=== PATIENT | female | born 1955 | race Caucasian/White ===

== ENCOUNTER 2017-11-05 10:45 | Emergency (ER) | payer BC ==
--- NOTE | 2017-11-05 11:21 | EDM.PDOC ---
ED HPI GENERAL MEDICAL PROBLEM - General Chief Complaint: Cardiovascular Problem Stated Complaint: MEDICATION ISSUES/HEART FLUTTERING Time Seen by Provider: 11/05/17 11:18 Source of Information: Reports: Patient History Limitations: Reports: No Limitations - History of Present Illness INITIAL COMMENTS - FREE TEXT/NARRATIVE: pt has a history of atrial fib which has been well controlled with flexainide and metorprol. She was placed on a course of predisone in a tapered dose, She has been having episodes of rapid rhythm and at that time she get some mild chest pain. That is the only time that she gets the discomfort. She has felt flushed with the predisone. Onset: Gradual Duration: Day(s):, Other ( She has been on the predisone for 4-5 days. ) Location: Reports: Chest Associated Symptoms: Reports: Chest Pain, Other (pt is having episodes of rapid rhythm. ) - Related Data Allergies Allergy/AdvReac Type Severity Reaction Status Date / Time naproxen Allergy Edema Verified 04/01/14 16:50 Home Meds: Home Meds Ibuprofen 800 mg PO QID 04/20/13 [History] Calcium Citrate/Vitamin D3 [Calcium Cit-Vit D 250-200 Cplt] 1 each PO DAILY [History] Fluticasone Propionate [Flonase] 16 gm NS DAILY 03/30/14 [History] Lisinopril/Hydrochlorothiazide [Zestoretic 20-12.5 mg Tablet] 1 tab PO DAILY [History] Metoprolol Tartrate [Lopressor] 12.5 mg PO BID 03/30/14 [History] Flecainide [Tambocor] 50 mg PO Q12H 11/05/17 [History] Polyethylene Glycol 3350 [MiraLAX] 17 gm PO ASDIRECTED 11/05/17 [History] Warfarin [Coumadin] 2 mg PO ASDIRECTED 11/05/17 [History] Warfarin [Coumadin] 5 mg PO ASDIRECTED 11/05/17 [History] rOPINIRole [Requip] 0.25 mg PO BEDTIME 11/05/17 [History] Social & Family History - Tobacco Use Years of Tobacco use: 25 Second Hand Smoke Exposure: No - Alcohol Use Days Per Week of Alcohol Use: 0 - Recreational Drug Use Recreational Drug Use: No ED ROS GENERAL - Review of Systems Review Of Systems: See Below Constitutional: Reports: No Symptoms HEENT: Reports: No Symptoms Respiratory: Reports: Shortness of Breath Cardiovascular: Reports: Palpitations, Other (pt is having episoded of rapid rhythm and when here heart is rapid she has chest pain. ) Endocrine: Reports: No Symptoms GI/Abdominal: Reports: No Symptoms : Reports: No Symptoms Musculoskeletal: Reports: Hand Pain Skin: Reports: No Symptoms ED EXAM, GENERAL - Physical Exam Exam: See Below Free Text/Narrative:: Pt arrived with a history of frequent episodes of rapid rhythm. She has some chest discomfort when this happens. Exam Limited By: No Limitations General Appearance: Alert, No Apparent Distress, Other (pt is feeling ok at this point. ) Ears: Normal TMs Nose: Normal Inspection Throat/Mouth: Normal Inspection Head: Atraumatic Neck: Normal Inspection Respiratory/Chest: No Respiratory Distress Cardiovascular: Regular Rate, Rhythm, Other (pt is having frequent episodes of rapid heart rhythm. She is on coumadin. ) GI/Abdominal: Soft, Non-Tender (Female) Exam: Deferred Rectal (Female) Exam: Deferred Back Exam: Normal Inspection Extremities: Normal Inspection Neurological: Alert, Oriented, Normal Cognition Psychiatric: Anxious Course - Vital Signs Last Recorded V/S: Last Vital Signs Temp 38.6 C H 11/05/17 12:55 Pulse 66 11/05/17 12:55 Resp 16 11/05/17 12:55 BP 131/75 11/05/17 12:55 Pulse Ox 94 L 11/05/17 12:55 - Orders/Labs/Meds Labs: Laboratory Tests 11/05/17 11/05/17 11/05/17 Range/Units 11:35 11:35 11:35 WBC 10.0 (4.5-11.0) K/uL RBC 4.71 (3.30-5.50) M/uL Hgb 14.4 (12.0-15.0) g/dL Hct 42.5 (36.0-48.0) % MCV 90 (80-98) fL MCH 31 (27-31) pg MCHC 34 (32-36) % Plt Count 343 (150-400) K/uL Neut % (Auto) 69 H (36-66) % Lymph % (Auto) 19 L (24-44) % [place] % (Auto) 10 H (2-6) % Eos % (Auto) 2 (2-4) % Baso % (Auto) 0 (0-1) % Sodium 138 L (140-148) mmol/L Potassium 3.4 L (3.6-5.2) mmol/L Chloride 99 L (100-108) mmol/L Carbon Dioxide 31 (21-32) mmol/L Anion Gap 11.4 (5.0-14.0) mmol/L BUN 10 (7-18) mg/dL Creatinine 0.6 (0.6-1.0) mg/dL Est Cr Clr Drug Dosing 74.30 mL/min Estimated GFR (MDRD) > 60 (>60) Glucose 113 H (74-106) mg/dL Calcium 8.5 (8.5-10.1) mg/dL Magnesium (1.8-2.4) mg/dL Total Bilirubin 0.4 (0.2-1.0) mg/dL AST 19 (15-37) U/L ALT 33 (12-78) U/L Alkaline Phosphatase 78 (46-116) U/L Troponin I < 0.017 (0.000-0.056) ng/mL Total Protein 7.1 (6.4-8.2) g/dL Albumin 3.4 (3.4-5.0) g/dL Globulin 3.7 H (2.3-3.5) g/dL Albumin/Globulin Ratio 0.9 L (1.2-2.2) 11/05/17 Range/Units 12:11 WBC (4.5-11.0) K/uL RBC (3.30-5.50) M/uL Hgb (12.0-15.0) g/dL Hct (36.0-48.0) % MCV (80-98) fL MCH (27-31) pg MCHC (32-36) % Plt Count (150-400) K/uL Neut % (Auto) (36-66) % Lymph % (Auto) (24-44) % [place] % (Auto) (2-6) % Eos % (Auto) (2-4) % Baso % (Auto) (0-1) % Sodium (140-148) mmol/L Potassium (3.6-5.2) mmol/L Chloride (100-108) mmol/L Carbon Dioxide (21-32) mmol/L Anion Gap (5.0-14.0) mmol/L BUN (7-18) mg/dL Creatinine (0.6-1.0) mg/dL Est Cr Clr Drug Dosing mL/min Estimated GFR (MDRD) (>60) Glucose (74-106) mg/dL Calcium (8.5-10.1) mg/dL Magnesium 1.8 (1.8-2.4) mg/dL Total Bilirubin (0.2-1.0) mg/dL AST (15-37) U/L ALT (12-78) U/L Alkaline Phosphatase (46-116) U/L Troponin I (0.000-0.056) ng/mL Total Protein (6.4-8.2) g/dL Albumin (3.4-5.0) g/dL Globulin (2.3-3.5) g/dL Albumin/Globulin Ratio (1.2-2.2) Meds: Medications Discontinued Medications Generic Name Dose Route Start Last Admin Trade Name Thania PRN Reason Stop Dose Admin Potassium Chloride 20 meq 11/05/17 13:16 11/05/17 13:53 Klor-Con M20 PO 11/05/17 13:17 20 meq ONETIME ONE Administration - Re-Assessments/Exams Free Text/Narrative Re-Assessment/Exam: 11/05/17 13:52 pt had a borderline k other labs were normal. she has gone off of the predisone. She is pain free at this time. Her trop was normal. Her ekg looked good. 11/09/17 18:20 pt arrived with a history of numerous episodes of rapid heart beat. She feels it is the predisone. Departure - Departure Time of Disposition: 13:40 Disposition: Home, Self-Care 01 Condition: Fair Clinical Impression: Medication reaction, History of atrial flutter Instructions: Atrial Flutter Referrals: Nicole Olguin PA [Primary Care Provider] - Forms: ED Department Discharge Care Plan Goals: appt with Shea Olguin in 4-5 days. increase metorprol to 1/2 tab tid, -- this should be for the next 4-5 days. high k diet.
--- NOTE | 2017-11-05 12:56 | CR ---
Chest 1V Frontal FINDINGS: The heart and vascular structures are normal in appearance. No infiltrates or effusions are demonstrated. There is mild atelectasis in the left base. The skeletal structures are unremarkable. IMPRESSION: 1. No acute findings.
[2017-11-05] MEDS ORDERED: Potassium Chloride 20 MEQ Tab.ER PO ONE (13:16)
== END 2017-11-05 14:01 | disposition home or self-care (01) ==
LOC: JP.ED 10:45
DX: R07.9 Chest pain, unspecified (principal); T38.0X5A Adverse effect of glucocorticoids and synthetic analogues, initial encounter; Z88.8 Allergy status to other drugs, medicaments and biological substances; Z79.899 Other long term (current) drug therapy
CPT/HCPCS: 36415; 71045; 80053; 83735; 84484; 85025; 93005; 99285; A9270

== ENCOUNTER 2020-04-11 15:07 | Emergency (ER) | payer BC ==
--- NOTE | 2020-04-11 16:18 | EDM.PDOC ---
ED HPI GENERAL MEDICAL PROBLEM - General Chief Complaint: Respiratory Problem Stated Complaint: SOB Time Seen by Provider: 04/11/20 16:18 Source of Information: Reports: Patient History Limitations: Reports: No Limitations - History of Present Illness INITIAL COMMENTS - FREE TEXT/NARRATIVE: 64 years old female patient presented to the ER with a chief complaint of shortness breath for the last several weeks. Nonexertional. Denies any chest pain. Denies any cough or fever. Denies any abdominal pain diarrhea or constipation. Denies any urinary symptom. She had mild runny nose because of allergy according to her. Denies any nasal congestion. Denies any recent travel. No sick contact. Also complaining of sinus pressure and postnasal drip. Headache Pain Score (Numeric/FACES): 3 - Related Data Allergies Allergy/AdvReac Type Severity Reaction Status Date / Time naproxen Allergy Edema Verified 04/11/20 16:05 prednisone Allergy Arrhythmias Verified 04/11/20 16:05 Home Meds: Home Meds Calcium Citrate/Vitamin D3 [Calcium Cit-Vit D 250-200 Cplt] 1 each PO DAILY 03/30/14 [History] Lisinopril/Hydrochlorothiazide [Zestoretic 20-12.5 mg Tablet] 1 tab PO DAILY 03/30/14 [History] Metoprolol Tartrate [Lopressor] 12.5 mg PO BID 03/30/14 [History] Flecainide [Tambocor] 50 mg PO Q12H 11/05/17 [History] Warfarin [Coumadin] 0 mg PO MOFR 11/05/17 [History] Warfarin [Coumadin] 0 mg PO SUTUWETHSA 11/05/17 [History] rOPINIRole [Requip] 0.25 mg PO BEDTIME 11/05/17 [History] Triamcinolone Acetonide [Triamcinolone Acetonide 0.025% Crm] 1 applic TOP ASDIRECTED PRN 11/10/17 [History] Magnesium Citrate 250 mg PO DAILY 01/18/20 [History] Levothyroxine Sodium [Euthyrox] 0.5 tab PO DAILY 04/11/20 [History] Past Medical History HEENT History: Reports: Impaired Vision Cardiovascular History: Reports: Afib, Hypertension Other Cardiovascular History: [employer] History: Reports: Musculoskeletal History: Reports: Other (See Below) Other Musculoskeletal History: osteopenia, plantar fasciitis Psychiatric History: Reports: Anxiety, Depression Endocrine/Metabolic History: Reports: Hypothyroidism - Past Surgical History HEENT Surgical History: Reports: Eye Surgery, Oral Surgery Social & Family History - Tobacco Use Smoking Status *Q: Former Smoker Used Tobacco, but Quit: Yes Month/Year Tobacco Last Used: 0 - Caffeine Use Caffeine Use: Reports: Coffee - Recreational Drug Use Recreational Drug Use: No ED ROS GENERAL - Review of Systems Review Of Systems: Comprehensive ROS is negative, except as noted in HPI. ED EXAM, GENERAL - Physical Exam Exam: See Below Exam Limited By: No Limitations General Appearance: Alert, WD/WN, No Apparent Distress Ears: Normal External Exam, Normal Canal, Hearing Grossly Normal, Normal TMs Nose: Normal Inspection, Normal Mucosa, No Blood Head: Atraumatic, Normocephalic Neck: Normal Inspection, Supple, Non-Tender, Full Range of Motion Respiratory/Chest: No Respiratory Distress, Lungs Clear, Normal Breath Sounds, No Accessory Muscle Use, Chest Non-Tender Cardiovascular: Normal Peripheral Pulses, Regular Rate, Rhythm, No Edema, No Gallop, No JVD, No Murmur, No Rub GI/Abdominal: Normal Bowel Sounds, Soft, Non-Tender, No Organomegaly, No Distention, No Abnormal Bruit, No Mass Extremities: Normal Inspection, Normal Range of Motion, Non-Tender, Normal Capillary Refill, No Pedal Edema Neurological: Alert, Oriented, CN II-XII Intact, Normal Cognition, Normal Gait, Normal Reflexes, No Motor/Sensory Deficits Psychiatric: Normal Affect, Normal Mood Skin Exam: Warm, Dry, Intact, Normal Color, No Rash Course - Vital Signs Last Recorded V/S: Last Vital Signs Temp 35.9 C L 04/11/20 16:03 Pulse 49 L 04/11/20 17:28 Resp 16 04/11/20 17:28 BP 144/63 H 04/11/20 17:28 Pulse Ox 98 04/11/20 17:28 - Orders/Labs/Meds Orders: Active Orders 24 hr Category Date Time Status EKG Documentation Completion [RC] ASDIRECTED Care 04/11/20 16:38 Active Chest 2V [CR] Urgent Exams 04/11/20 16:34 Taken EKG 12 Lead [EK] Urgent Ther 04/11/20 16:34 Ordered Labs: Laboratory Tests 08/27/20 08/27/20 Range/Units 17:02 17:02 WBC 7.4 (4.5-11.0) K/uL RBC 4.51 (3.30-5.50) M/uL Hgb 12.4 D (12.0-15.0) g/dL Hct 38.2 (36.0-48.0) % MCV 85 (80-98) fL MCH 28 (27-31) pg MCHC 33 (32-36) % Plt Count 311 (150-400) K/uL Neut % (Auto) 63 (36-66) % Lymph % (Auto) 25 (24-44) % [place] % (Auto) 10 H (2-6) % Eos % (Auto) 2 (2-4) % Baso % (Auto) 1 (0-1) % Sodium 135 L (140-148) mmol/L Potassium 3.6 (3.6-5.2) mmol/L Chloride 98 L (100-108) mmol/L Carbon Dioxide 29 (21-32) mmol/L Anion Gap 11.6 (5.0-14.0) mmol/L BUN 11 (7-18) mg/dL Creatinine 0.7 (0.6-1.0) mg/dL Est Cr Clr Drug Dosing 62.07 mL/min Estimated GFR (MDRD) > 60 (>60) Glucose 100 (74-106) mg/dL Calcium 8.8 (8.5-10.1) mg/dL Troponin I < 0.017 (0.000-0.056) ng/mL - Radiology Interpretation Free Text/Narrative:: Patient was seen and examined shortly after arrival. Stable. EKG, lab and imaging reviewed with the patient. No significant acute abnormalities. Patient stated she is feeling better saline here and symptom markedly improved. Her symptoms could possibly be related to acute sinusitis. No sign of pneumonia, pneumothorax, PE, NH, CVA, severe sepsis, arrhythmia, etc. stated she had a normal stress test couple month ago. Started on amoxicillin. Rest and stay well-hydrated Close follow-up with PCP in 3 days, sooner if symptom worsen Come back for any concern or any worsening symptom Patient agrees with the plan. Stable for discharge. Departure - Departure Time of Disposition: 18:23 Disposition: Home, Self-Care 01 Condition: Good Clinical Impression: Sinusitis, SOB (shortness of breath) - Discharge Information *PRESCRIPTION DRUG MONITORING PROGRAM REVIEWED*: Not Applicable *COPY OF PRESCRIPTION DRUG MONITORING REPORT IN PATIENT YARON: Not Applicable Referrals: Nicole Olguin PA [Primary Care Provider] - Forms: ED Department Discharge Additional Instructions: Rest and stay well-hydrated Close follow-up with PCP in 3 days, sooner if symptom worsen Come back for any concern or any worsening symptom Sepsis Event Note (ED) - Evaluation Sepsis Screening Result: No Definite Risk - Focused Exam Vital Signs: Vital Signs Temp Pulse Resp BP Pulse Ox 04/11/20 17:28 49 L 16 144/63 H 98 04/11/20 16:03 35.9 C L 65 16 167/73 H 99 04/11/20 15:41 35.9 C L 65 16 167/73 H 99 - My Orders Last 24 Hours: My Active Orders 04/11/20 16:34 Chest 2V [CR] Urgent EKG 12 Lead [EK] Urgent 04/11/20 16:38 EKG Documentation Completion [RC] ASDIRECTED - Assessment/Plan Last 24 Hours: My Active Orders 04/11/20 16:34 Chest 2V [CR] Urgent EKG 12 Lead [EK] Urgent 04/11/20 16:38 EKG Documentation Completion [RC] ASDIRECTED Plan: Rest and stay well-hydrated Close follow-up with PCP in 3 days, sooner if symptom worsen Come back for any concern or any worsening symptom
--- NOTE | 2020-04-12 09:21 | CR ---
CHEST: 2 view CLINICAL HISTORY:SOB COMPARISON:CT 01/05/2019 FINDINGS: The heart size, pulmonary vascularity and hilar structures are normal. No infiltrate effusion or pneumothorax is seen. IMPRESSION: No acute cardiopulmonary process.
== END 2020-04-11 19:06 | disposition home or self-care (01) ==
LOC: JP.ED 15:07
DX: R06.02 Shortness of breath (principal); J32.9 Chronic sinusitis, unspecified; I48.91 Unspecified atrial fibrillation; I10 Essential (primary) hypertension; E03.9 Hypothyroidism, unspecified; Z88.8 Allergy status to other drugs, medicaments and biological substances; Z79.899 Other long term (current) drug therapy; Z79.01 Long term (current) use of anticoagulants; Z87.891 Personal history of nicotine dependence
CPT/HCPCS: 36415; 71046; 71046-26; 80048; 84484; 85025; 93005; 93010; 99285-25